=== PATIENT | male | born 1950 | race Caucasian/White ===

== ENCOUNTER → 2016-11-28 | Outpatient (CLI) | payer OTHER ==
[~2016-11-28] MED LIST: IOHEXOL 300 MG/ML 100ML VIAL. IV ONE; LOSA1TAB17 PO
--- NOTE | 2016-11-28 10:31 | KCIC ---
CT OF THE CHEST WITH CONTRAST, 11/28/2016: History: Follow up abnormal CT study Multidetector CT imaging was performed following an IV bolus injection of iodinated contrast material. Comparison is made to a study from 09/13/2015. There is calcific plaquing of the thoracic aorta without evidence of aneurysm. Mild scattered coronary artery calcifications are noted. Multiple small mediastinal lymph nodes are present without evidence of pathologic enlargement. No hilar adenopathy is seen. A small ground-glass opacity previously seen in the right middle lobe has resolved. Currently no pulmonary nodule or significant infiltrate is seen. There is no evidence of pleural fluid. A small low-density left adrenal nodule is probably a adenoma. Hepatic steatosis is again noted. IMPRESSION: 1. Resolution of the small right middle lobe opacity since 09/13/2015 suggesting that it was inflammatory in nature. 2. No acute chest abnormality is detected. Electronically signed by: Kartik Tse MD (Nov 28, 2016 10:29:42)
== END | disposition home or self-care (01) ==
LOC: KCIC CT 09:00
PROVIDERS: ATTEND Physician Assistant Medical
DX: K76.0 Fatty (change of) liver, not elsewhere classified (principal); I25.10 Atherosclerotic heart disease of native coronary artery without angina pectoris; I70.0 Atherosclerosis of aorta
CPT/HCPCS: 71260; Q9967

== ENCOUNTER 2017-06-23 14:13 | Observation (INO) | payer OTHER ==
[~2017-06-23] VITALS: Ht 175.3 cm; Wt 97.6 kg
[~2017-06-23 14:13] MED LIST changes: -IOHEXOL 300 MG/ML 100ML VIAL. IV ONE
--- NOTE | 2017-06-23 15:11 | EKG ---
[facility] [address] [place] [address] Test Date: 2017-06-23 Test Time: 15:00:52 Pat Name: GURPREET JIANG Department: Room: Gender: M Electronic Development Technician: : 1950 Requested By: ASA VIVAR Order Number: [id number] Reading MD: Gary Avila Measurements Intervals [place] Rate: 90 P: 39 RI: 180 QRS: -2 QRSD: 78 T: 81 QT: 346 QTc: 427 Interpretive Statements SINUS RHYTHM Electronically Signed On 06-25-2017 11:15:50 CDT by Gary Avila
[2017-06-23] MEDS ORDERED: ASPIRIN CHEWABLE 81 MG TABLET. PO ONE (15:45)
--- NOTE | 2017-06-23 16:32 | RAD ---
MRI Brain without contrast History: Left-sided numbness, dizziness Technique: Multiplanar, multisequential noncontrast MR imaging was performed of the brain. Contrast: None Comparison: None Findings: There is some motion degradation.There are a few small foci of restricted diffusion of the right occipital lobe, also focus near the right occipital forceps near the margin of splenium of the corpus callosum. There is some corresponding minimal T2 and FLAIR hyperintense signal. There are several other scattered tiny foci of T2 and FLAIR hyperintense abnormality of the supratentorial white matter bilaterally. The ventricles, sulci, and cisterns are within normal limits in size and configuration. There is no significant midline shift, intra-axial mass effect, or focal abnormal extra-axial fluid collection. There is no convincing hemosiderin deposition of the brain parenchyma. There is preservation of the major intracranial flow-voids at the skull base. The mastoid air cells are aerated. The cerebellar tonsils are normal in location. There is no significant abnormality of the pineal gland or pituitary gland. There is minimal inferior maxillary sinus mucosal thickening bilaterally, also minimal sphenoid sinus and patchy ethmoid air cell mucosal thickening. Frontal sinus is not pneumatized. There is nonspecific heterogeneous low signal of the marrow of the nonexpanded clivus. Impression: 1. There are a few small foci of acute or early subacute infarcts of the right occipital lobe, also focus along the right occipital forceps near the margin of splenium of the corpus callosum. 2. Other scattered tiny foci of T2 and FLAIR hyperintense signal of the supratentorial white matter bilaterally are nonspecific although may be due to to chronic microvascular ischemic disease. FOR INTERNAL CODING PURPOSES Critical result: Findings discussed with Dr. Owens at 06/23/2017 4:26 PM. RESULT CODE: (C) Electronically signed by: Tomasz Law MD (06/23/2017 4:28 PM) [id number]
[2017-06-23 17:19] LABS: BASO # 0.1 x10^3/uL (0.0-0.2); BASO % 1 % (0-3); EOS % 0 % (0-3); HEMATOCRIT 43.5 % (39.0-53.0); HEMOGLOBIN 15.1 g/dL (13.0-17.5); LYMPH # 2.4 x10^3/uL (1.0-4.8); LYMPH % 23 % (24-48); MEAN CORPUSCULAR HEMOGLOBIN 33 pg (25-35); MEAN CORPUSCULAR HGB CONC 35 g/dL (31-37); MEAN CORPUSCULAR VOLUME 94 fL (79-100); MONO % 8 % (0-9); NEUT % 67 % (31-73); PLATELET COUNT 269 x10^3/uL (140-400); RED BLOOD COUNT 4.64 x10^6/uL (4.30-5.70); RED CELL DISTRIBUTION WIDTH 12.9 % (11.5-14.5); WHITE BLOOD COUNT 10.5 x10^3/uL (4.0-11.0)
[2017-06-23 17:22] LABS: BILIRUBIN,URINE NEGATIVE (NEG); GLUCOSE,URINE NEGATIVE (NEG); NITRITE,URINE NEGATIVE (NEG); PROTEIN,URINE NEGATIVE (NEG-TRACE); UROBILINOGEN,URINE 0.2 mg/dL (0.2 mg/dL)
[2017-06-23 17:31] LABS: RBC,URINE OCC /HPF (0-2); WBC,URINE 0 /HPF (0-4)
[2017-06-23 17:32] LABS: BACTERIA,URINE 0 /HPF (0-FEW); CALCIUM 9.8 mg/dL (8.5-10.1); CREATININE 0.8 mg/dL (0.7-1.3); GFR 97.3; POTASSIUM 3.9 mmol/L (3.5-5.1)
[2017-06-23 17:38] LABS: ALBUMIN/GLOBULIN RATIO 1.1 (1.0-1.7); TOTAL BILIRUBIN 0.4 mg/dL (0.2-1.0); TOTAL PROTEIN 7.6 g/dL (6.4-8.2)
--- NOTE | 2017-06-23 17:43 | PHYS DOC ---
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 Symptoms were acute onset. Left upper and left lower extremity weakness and left sided visual field defects have since resolved. Patient states dizziness return today. Patient has not been evaluated for any of these symptoms. Dizziness is most pronounced with standing and walking but does not go away at rest. Patient denies currently denies ataxia but, initially reported difficulty walking secondary to left lower extremity weakness. He denies chest pain, palpitations, shortness of breath, neck pain, neck stiffness, or any other acute symptoms or complaints. Patient does smoke and drinks alcohol on a routine basis. Does not take aspirin or any anticoagulation therapy. Patient's PCP is Dr. Jarrod Pulido. Review of Systems Review of Systems Review symptoms as per history of present illness. All other review symptoms are negative. Current Medications Current Medications Current Medications Medications (Trade) Dose Ordered Sig/Lisandra Start Time Stop Time Status Last Admin Dose Admin Aspirin (Children'S Aspirin) 162 mg 1X ONCE 06/23/17 15:45 06/23/17 15:46 DC 06/23/17 15:25 162 MG Allergies Allergies Allergies Coded Allergies Type Severity Reaction Last Updated Verified No Known Drug Allergies 11/28/16 No Physical Exam Physical Exam Constitutional: Well developed, well nourished, no acute distress, non-toxic appearance. [] HENT: Normocephalic, atraumatic, bilateral external ears normal, oropharynx moist, no oral exudates, nose normal. [] Eyes: PERRL, left pupil, nonreactive, proximal 4 mm, EOMI, conjunctiva normal, no discharge. [] Neck: Normal range of motion, no tenderness, supple, no stridor. [] Cardiovascular:Heart rate regular rhythm, no murmur [] Lungs & Thorax: Bilateral breath sounds clear to auscultation [] Abdomen: Bowel sounds normal, soft, no tenderness, no masses, no pulsatile masses. [] Skin: Warm, dry, no erythema, no rash. [] Back: No tenderness, no CVA tenderness. [] Extremities: No tenderness, no cyanosis, no clubbing, ROM intact, no edema. [] Neurologic: Alert and oriented X 3, cranial nerves II through XII grossly intact , no focal extremity weakness or loss of sensation, normal finger to nose, walks with steady slow gait. Reflexes 1+ symmetric throughout upper and lower extremities.. [] Psychologic: Affect normal, judgement normal, mood normal. [] Current Patient Data Vital Signs Vital Signs Date Time Temp Pulse Resp B/P (MAP) Pulse Ox O2 Delivery O2 Flow Rate FiO2 06/23/17 16:53 87 18 194/94 (127) 97 Room Air 06/23/17 15:00 98.0 98.0 Lab Values Laboratory Tests Test 06/23/17 16:55 White Blood Count 10.5 x10^3/uL (4.0-11.0) Red Blood Count 4.64 x10^6/uL (4.30-5.70) Hemoglobin 15.1 g/dL (13.0-17.5) Hematocrit 43.5 % (39.0-53.0) Mean Corpuscular Volume 94 fL (79-100) Mean Corpuscular Hemoglobin 33 pg (25-35) Mean Corpuscular Hemoglobin Concent 35 g/dL (31-37) Red Cell Distribution Width 12.9 % (11.5-14.5) Platelet Count 269 x10^3/uL (140-400) Neutrophils (%) (Auto) 67 % (31-73) Lymphocytes (%) (Auto) 23 % (24-48) L Monocytes (%) (Auto) 8 % (0-9) Eosinophils (%) (Auto) 0 % (0-3) Basophils (%) (Auto) 1 % (0-3) Neutrophils # (Auto) 7.1 x10^3uL (1.8-7.7) Lymphocytes # (Auto) 2.4 x10^3/uL (1.0-4.8) Monocytes # (Auto) 0.9 x10^3/uL (0.0-1.1) Eosinophils # (Auto) 0.0 x10^3/uL (0.0-0.7) Basophils # (Auto) 0.1 x10^3/uL (0.0-0.2) Urine Collection Type Unknown Urine Color Yellow Urine Clarity Hazy Urine pH 7.0 Urine Specific Counce 1.020 Urine Protein Negative mg/dL (NEG-TRACE) Urine Glucose (UA) Negative mg/dL (NEG) Urine Ketones (Stick) Negative mg/dL (NEG) Urine Blood Negative (NEG) Urine Nitrite Negative (NEG) Urine Bilirubin Negative (NEG) Urine Urobilinogen Dipstick 0.2 mg/dL (0.2 mg/dL) Urine Leukocyte Esterase Trace (NEG) Urine RBC Occ /HPF (0-2) Urine WBC 0 /HPF (0-4) Urine Bacteria 0 /HPF (0-FEW) Urine Hyaline Casts Occasional /HPF Urine Mucus Marked /LPF Sodium Level 132 mmol/L (136-145) L Potassium Level 3.9 mmol/L (3.5-5.1) Chloride Level 96 mmol/L (98-107) L Carbon Dioxide Level 24 mmol/L (21-32) Anion Gap 12 (6-14) Blood Urea Nitrogen 14 mg/dL (8-26) Creatinine 0.8 mg/dL (0.7-1.3) Estimated GFR (Cockcroft-Gault) 97.3 BUN/Creatinine Ratio 18 (6-20) Glucose Level 107 mg/dL (70-99) H Calcium Level 9.8 mg/dL (8.5-10.1) Total Bilirubin Pending Aspartate Amino Transferase (AST) Pending Alanine Aminotransferase (ALT) Pending Alkaline Phosphatase Pending Total Protein Pending Albumin Pending Albumin/Globulin Ratio Pending Laboratory Tests 06/23/17 16:55 Laboratory Tests 06/23/17 16:55 EKG EKG [] EKG: Normal sinus rhythm, rate 90, no acute ST-T wave changes, QTC 427. EKG interpreted by this physician. Radiology/Procedures Radiology/Procedures [MRI brain: Few small foci of acute or early subacute infarcts of the right subdural, also focus along the right occipital margin of splenium and corpus callosum, evidence of supratentorial microvascular disease per radiology report] Course & Med Decision Making Course & Med Decision Making Pertinent Labs and Imaging studies reviewed. (See chart for details) [Patient with evidence of acute and subacute CVA on MRI of brain. NIH stroke score is 0 although, patient reports subjective dizziness. Aspirin given. Imaging lab and EKG reviewed with patient's PCP in detail. Recommendations for her hospital admission and neurology consult. Patient without progression of neurologic symptoms or deficits while in the ED.] Dragon Disclaimer Dragon Disclaimer This electronic medical record was generated, in whole or in part, using a voice recognition dictation system. Departure Departure Disposition: 09 ADMITTED INPATIENT Admitting Physician: Jarrod Pulido Condition: IMPROVED Referrals: JARROD PULIDO MD (PCP) ASA VIVAR DO Jun 23, 2017 17:43
[2017-06-23] MEDS ORDERED: cloNIDine HCL 0.1 MG TABLET PO ONE (18:00)
[2017-06-23 19:00] VITALS: BP 143/73
[2017-06-23 23:00] VITALS: BP 111/61
[2017-06-24 03:00] VITALS: BP 121/74
[2017-06-24 04:44] LABS: BASO % 1 % (0-3); EOS % 2 % (0-3); HEMATOCRIT 41.1 % (39.0-53.0); HEMOGLOBIN 14.2 g/dL (13.0-17.5); LYMPH # 3.2 x10^3/uL (1.0-4.8); LYMPH % 34 % (24-48); MEAN CORPUSCULAR HEMOGLOBIN 33 pg (25-35); MEAN CORPUSCULAR HGB CONC 35 g/dL (31-37); MEAN CORPUSCULAR VOLUME 95 fL (79-100); MONO % 11 % (0-9); NEUT % 52 % (31-73); PLATELET COUNT 250 x10^3/uL (140-400); RED BLOOD COUNT 4.34 x10^6/uL (4.30-5.70); RED CELL DISTRIBUTION WIDTH 13.1 % (11.5-14.5); WHITE BLOOD COUNT 9.6 x10^3/uL (4.0-11.0)
[2017-06-24 05:10] LABS: CALCIUM 8.9 mg/dL (8.5-10.1); CREATININE 0.8 mg/dL (0.7-1.3); GFR 97.3; POTASSIUM 4.1 mmol/L (3.5-5.1)
[2017-06-24 07:28] VITALS: BP 145/76
--- NOTE | 2017-06-24 08:23 | PDOC ---
Provider Note Provider Note [id number] CYNDIE HERNANDEZ MD Jun 24, 2017 08:23
--- NOTE | 2017-06-24 08:57 | HP ---
ADMIT DATE: 06/24/2017 CHIEF COMPLAINT: Visual change and left-sided weakness. HISTORY OF PRESENT ILLNESS: A 66-year-old white male who is known to be a heavy drinker and smoker and has a history of hypertension, came to the ER with 1 week of episodic symptoms of some weakness in his left leg more than left arm and some visual field changes that appear to be present on both eyes. Exam is unremarkable. MRI showed evidence of spotty infarcts in the right occipital lobe and no other lesions were seen. Laboratory studies were unremarkable. He does not have any new symptoms and was started on aspirin. PAST HISTORY: MEDICATIONS: Losartan HCT is his only medication. ALLERGIES: He has no allergies. PAST MEDICAL HISTORY: He has had multiple skin cancers resected. He has had no other significant surgeries or any previous CVA. SOCIAL HISTORY: Moderately heavy drinker and smokes about half pack a day, single, not currently employed. FAMILY HISTORY: Unremarkable. REVIEW OF SYSTEMS: No other specific complaints at this time. OBJECTIVE: ENT: All within normal limits. HEENT: Pupils round and reactive, pharynx clear. NECK: No carotid bruits, nodes, masses or thyroid enlargement. LUNGS: Clear. CARDIOVASCULAR: Regular rate. No irregular beat, murmur or tachycardia. ABDOMEN: Soft, benign and nontender. EXTREMITIES: Good pedal and radial pulses. Healed skin cancers in the left upper arm. No new lesions are seen except on the left cheek, which is probably a recurrent basal cell cancer. NEUROLOGIC: Moves all extremities, very subtle left-sided visual haywood notable. EOMs are full. Cranial nerves, motor, sensory and reflexes appear to be intact. Gait was not tested. Mental status is normal. ASSESSMENT: Occipital lobe infarct on the right side with subtle left-sided visual changes. This does not necessarily explain the left leg weakness that he has experienced recently. Risk factors include heavy tobacco or alcohol use. PLAN: Daily aspirin, carotid studies, Neurologic consultation. Start a statin pending results of lipid profile. CYNDIE HERNANDEZ MD DR: KHOA/edmond JOB#: [id number] / [id number]
[2017-06-24] MEDS ORDERED: LOSARTAN POTASSIUM 50 MG TABLET. PO SCH (09:00)
[2017-06-24] MEDS ORDERED: hydroCHLOROthiazide 25 MG TABLET PO SCH (09:00)
[2017-06-24] MEDS ORDERED: ASPIRIN CHEWABLE 81 MG TABLET. PO SCH (09:00)
[2017-06-24 09:08] LABS: CHOLESTEROL/HDL RATIO 3.9
[2017-06-24 10:56] VITALS: BP 143/76
--- NOTE | 2017-06-24 11:33 | RAD ---
Exam performed: Carotid Doppler. Clinical indication: Left facial numbness Date of Service: 06/24/17. Comparison :None available. Technique: Real-time grayscale and Doppler evaluation of the carotid system was performed and images are obtained. Color flow and spectral analysis was observed. Findings: There is diffuse intimal thickening and mild to moderate plaquing within both carotid bulbs extending into the internal carotid artery bilaterally. Doppler interrogation reveals normal waveforms and velocities as follows . Peak systolic velocity within the right common carotid artery measures 98.0 cm/sec whereas on the left measures 163.0 cm/sec . The peak systolic velocity within the right ICA measures 112 cm/sec whereas on the left measures 106 cm/sec. The ICA to CCA ratio on the right measures 1.21 whereas on the left measures 0.67. There is antegrade flow in both vertebral arteries. Impression: 1.Mild to moderate plaquing involving both carotid systems without any flow-limiting stenosis. Note: Stenosis calculations for CT, MR and conventional angiography are based upon determination of the distal ICA diameter in accordance with the NASCET methodology. Stenosis calculations for doppler studies are derived from validated velocity criteria which are known to correlate with NASCET methodology of determining stenosis.
[2017-06-24 14:47] VITALS: BP 144/66
--- NOTE | 2017-06-24 15:23 | CARD ---
APPROVED REPORT EXAM: Two-dimensional and M-mode echocardiogram with Doppler and color Doppler. Other Information Quality : GoodHR: 74bpm Rhythm : NSR INDICATION CVA/TIA Echo Enhancing Agent Indication: Rule Out Septal Defect Agent/Amount Used: Agitated Saline 8mL 2D DIMENSIONS RVDd2.9 (2.9-3.5cm)Left Atrium(2D)3.8 (1.6-4.0cm) IVSd0.8 (0.7-1.1cm)Aortic Root(2D)2.8 (2.0-3.7cm) LVDd5.1 (3.9-5.9cm)LVOT Diameter2.4 (1.8-2.4cm) PWd0.9 (0.7-1.1cm)LVDs3.3 (2.5-4.0cm) FS (%) 34.4 %SV77.5 ml LVEF(%)63.2 (>50%) Aortic Valve AoV Peak Kirt.132.0cm/sAoV VTI25.4cm AO Peak GR.7.0mmHgLVOT Peak Kirt.120.0cm/s AO Mean GR.4mmHgAVA (VMAX)4.00cm2 Mitral Valve MV E Mgbiaquf83.8cm/sMV E Peak Gr.4mmHg MV DECEL [id number] A Davikrxi49.6cm/s MV E Mean Gr.1mmHgE/A Ratio0.8 MV A [id number] Pulmonary Valve PV Peak Twyvtrxi424.2cm/s Tricuspid Valve TR P. Cgyawqar708dk/sTR Peak Gr.24mmHg Pulmonary Vein S1 Rbehkrqo32.1cm/sD2 Qsixvfdy62.9cm/s PVa [id number] LEFT VENTRICLE The left ventricle is normal size. There is normal left ventricular wall thickness. The left ventricu lar systolic function is normal. The Ejection Fraction is 60-65%. There is normal LV segmental wall m otion. Transmitral Doppler flow pattern is Grade I-abnormal relaxation pattern. No left ventricle thr ombus noted on this study. There is no ventricular septal defect visualized. RIGHT VENTRICLE The right ventricle is normal size. There is normal right ventricular wall thickness. The right ventr icular systolic function is normal. ATRIA The left atrium size is normal. The right atrium size is normal. The interatrial septum is intact wit h no evidence for an atrial septal defect or patent foramen ovale as noted on 2-D or Doppler imaging. Injection of agitated saline bubbles documented no interatrial shunt. AORTIC VALVE The aortic valve is mildly sclerotic. The aortic valve is trileaflet. Doppler and Color Flow revealed no significant aortic regurgitation. There is no significant aortic valvular stenosis. MITRAL VALVE The mitral valve leaflets are mildly thickened. There is no evidence of mitral valve prolapse. There is no mitral valve stenosis. Doppler and Color Flow revealed no mitral valve regurgitation noted. TRICUSPID VALVE Doppler and Color Flow revealed trace tricuspid regurgitation. The pulmonary artery systolic pressure is estimated at 27 mmHg. There is no pulmonary hypertension. PULMONIC VALVE The pulmonary valve is not well visualized but appears to open adequately. Doppler and Color Flow rev ealed no pulmonic valvular regurgitation. There is no pulmonic valvular stenosis by spectral Doppler. GREAT VESSELS The aortic root is normal in size. The ascending aorta is normal in size. The pulmonary artery is nor mal. The IVC is normal in size and collapses >50% with inspiration. PERICARDIAL EFFUSION There is no evidence of significant pericardial effusion. Critical Notification Critical Value: No <Conclusion> The left ventricular systolic function is normal. The Ejection Fraction is 60-65%. There is normal LV segmental wall motion. Transmitral Doppler flow pattern is Grade I-abnormal relaxation pattern. Trace tricuspid regurgitation. The pulmonary artery systolic pressure is estimated at 27 mmHg. There is no evidence of significant pericardial effusion. Injection of agitated saline bubbles documented no interatrial shunt.
--- NOTE | 2017-06-24 16:38 | PDOC2 ---
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 Left eye visual disturbances x 1 week. Intermittent dizziness and left side weakness x 1 week. HTN Skin cancer, multiple. Smoking Drinking. RECOMMENDATIONS/PLAN: ASA 325 mg daily. Lipitor HS. Lab: see orders. Patient education for smoking and drinking abstinence. Carotid A US + Doppler: No high grade stenosis. Echo: Unremarkable. HISTORY OF THE PRESENT ILLNESS: 66-y-old male patient with Hx of HTN, smoking and drinking problems developed symptoms of left eye visual disturbances as seeing spots for about 1 week. He also has symptoms of left side lip numbness, intermittent left UE and LE weakness for 1 week. He came to the ER of [facility] on 06/23/17 and was admitted for further evaluation and stroke was revealed. PAST MEDICAL HISTORY: He has had multiple skin cancers resected. He has had no other significant surgeries or any previous CVA. PAST SURGICAL HISTORY: Surgeries for skin cancer. SOCIAL HISTORY: He smokes 1 pack a day for more than 30 years. He drinks 6 beers a day for more than 30 years. Denies illicit drug use. FAMILY HISTORY: Skin cancer. Breast cancer. ALLERGY: NKDA MEDICATIONS: Refer to MAR REVIEW OF SYSTEMS: Constitutional: No malnutrition, weight loss, cachexia. Head: No recent traumatic brain or head injury. Skin: No edema, or rash. Ear: No infection. Eyes: No vision loss or color blindness. Nose: No bleeding or purulent discharges. Hearing: No hearing decrease. Neck: No injury. Cardiac: HTN. Pulmonary: No pneumonia. GI: No GI ulcer, GI bleeding. Urinary/genital: No dysuria, incontinence, urinary retention. Endocrinologic: No cousin face, craniofacial dysmorphism, polydactyly, goiter. Skeletomuscular: No muscular atrophy, deformity. Neurological: see HP. Psychiatric: Denies drug use/abuse. Otherwise, not [id number] review of systems. PHYSICAL EXAMINATION: General appearance is in subacute distress. HEENT: Normocephalic and nontraumatic. Eyes, nose, ears, and throat are unremarkable. Neck is supple. No lymphadenopathy. No bruits are heard over the carotid artery. No crepitus. Cardiovascular: S1, S2, regular rate and rhythm. Pulmonary: Clear to auscultation bilaterally. Abdomen: Bowel sounds are positive. Abdomen is soft, nontender, and nondistended. Extremities: No rash, lesions, or edema. No restriction of range of motion NEUROLOGICAL EXAMINATION: Alert Oriented to time, place and person. PERRL. EOMI. CN: no focal findings. Muscle tone: within normal. Muscle strength: 5 DTR: 2 Plantar reflex: Flexor/Neutral response bilaterally Gait: At baseline normal. Sensory exam: no abnormal findings. No cerebellar signs elicited. F-T-N test accurate. Current Medications Current Medications Current Medications Aspirin (Children'S Aspirin) 162 mg 1X ONCE PO Last administered on 06/23/17 15:25; Start 06/23/17 at 15:45; Stop 06/23/17 at 15:46; Status DC Clonidine HCl (Catapres) 0.1 mg 1X ONCE PO Last administered on 06/23/17 21: 31; Start 06/23/17 at 18:00; Stop 06/23/17 at 18:01; Status DC Losartan Potassium (Cozaar) 100 mg DAILY PO Last administered on 06/24/17 08: 45; Start 06/24/17 at 09:00 Aspirin (Children'S Aspirin) 81 mg DAILYWBKFT PO Last administered on 08:45; Start 06/24/17 at 09:00 Hydrochlorothiazide (Hydrodiuril) 25 mg DAILY PO Last administered on 08:45; Start 06/24/17 at 09:00 Atorvastatin Calcium (Lipitor) 20 mg QHS PO ; Start 06/24/17 at 21:00 Active Scripts Active Reported Losartan-Hctz 100-25 Mg Tab (Losartan/Hydrochlorothiazide) 1 Each Tablet 1 Tab PO DAILY Allergies Allergies: Coded Allergies: No Known Drug Allergies (Unverified , 11/28/16) Vitals VITALS Vital Signs Date Time Temp Pulse Resp B/P (MAP) Pulse Ox O2 Delivery O2 Flow Rate FiO2 06/24/17 14:47 98.2 69 18 144/66 (92) 98 Room Air 98.2 Labs Labs Laboratory Tests Test 06/23/17 16:55 06/24/17 04:20 White Blood Count 10.5 x10^3/uL (4.0-11.0) 9.6 x10^3/uL (4.0-11.0) Red Blood Count 4.64 x10^6/uL (4.30-5.70) 4.34 x10^6/uL (4.30-5.70) Hemoglobin 15.1 g/dL (13.0-17.5) 14.2 g/dL (13.0-17.5) Hematocrit 43.5 % (39.0-53.0) 41.1 % (39.0-53.0) Mean Corpuscular Volume 94 fL (79-100) 95 fL (79-100) Mean Corpuscular Hemoglobin 33 pg (25-35) 33 pg (25-35) Mean Corpuscular Hemoglobin Concent 35 g/dL (31-37) 35 g/dL (31-37) Red Cell Distribution Width 12.9 % (11.5-14.5) 13.1 % (11.5-14.5) Platelet Count 269 x10^3/uL (140-400) 250 x10^3/uL (140-400) Neutrophils (%) (Auto) 67 % (31-73) 52 % (31-73) Lymphocytes (%) (Auto) 23 % (24-48) 34 % (24-48) Monocytes (%) (Auto) 8 % (0-9) 11 % (0-9) Eosinophils (%) (Auto) 0 % (0-3) 2 % (0-3) Basophils (%) (Auto) 1 % (0-3) 1 % (0-3) Neutrophils # (Auto) 7.1 x10^3uL (1.8-7.7) 5.0 x10^3uL (1.8-7.7) Lymphocytes # (Auto) 2.4 x10^3/uL (1.0-4.8) 3.2 x10^3/uL (1.0-4.8) Monocytes # (Auto) 0.9 x10^3/uL (0.0-1.1) 1.1 x10^3/uL (0.0-1.1) Eosinophils # (Auto) 0.0 x10^3/uL (0.0-0.7) 0.2 x10^3/uL (0.0-0.7) Basophils # (Auto) 0.1 x10^3/uL (0.0-0.2) 0.0 x10^3/uL (0.0-0.2) Urine Collection Type Unknown Urine Color Yellow Urine Clarity Hazy Urine pH 7.0 Urine Specific [place] 1.020 Urine Protein Negative mg/dL (NEG-TRACE) Urine Glucose (UA) Negative mg/dL (NEG) Urine Ketones (Stick) Negative mg/dL (NEG) Urine Blood Negative (NEG) Urine Nitrite Negative (NEG) Urine Bilirubin Negative (NEG) Urine Urobilinogen Dipstick 0.2 mg/dL (0.2 mg/dL) Urine Leukocyte Esterase Trace (NEG) Urine RBC Occ /HPF (0-2) Urine WBC 0 /HPF (0-4) Urine Bacteria 0 /HPF (0-FEW) Urine Hyaline Casts Occasional /HPF Urine Mucus Marked /LPF Sodium Level 132 mmol/L (136-145) 133 mmol/L (136-145) Potassium Level 3.9 mmol/L (3.5-5.1) 4.1 mmol/L (3.5-5.1) Chloride Level 96 mmol/L (98-107) 97 mmol/L (98-107) Carbon Dioxide Level 24 mmol/L (21-32) 27 mmol/L (21-32) Anion Gap 12 (6-14) 9 (6-14) Blood Urea Nitrogen 14 mg/dL (8-26) 13 mg/dL (8-26) Creatinine 0.8 mg/dL (0.7-1.3) 0.8 mg/dL (0.7-1.3) Estimated GFR (Cockcroft-Gault) 97.3 97.3 BUN/Creatinine Ratio 18 (6-20) Glucose Level 107 mg/dL (70-99) 103 mg/dL (70-99) Calcium Level 9.8 mg/dL (8.5-10.1) 8.9 mg/dL (8.5-10.1) Total Bilirubin 0.4 mg/dL (0.2-1.0) Aspartate Amino Transf (AST/SGOT) 18 U/L (15-37) Alanine Aminotransferase (ALT/SGPT) 28 U/L (16-63) Alkaline Phosphatase 65 U/L (46-116) Troponin I Quantitative < 0.017 ng/mL (0.000-0.055) Total Protein 7.6 g/dL (6.4-8.2) Albumin 4.0 g/dL (3.4-5.0) Albumin/Globulin Ratio 1.1 (1.0-1.7) Triglycerides Level 79 mg/dL (0-150) Cholesterol Level 142 mg/dL (0-200) LDL Cholesterol, Calculated 90 mg/dL (0-100) VLDL Cholesterol, Calculated 16 mg/dL (0-40) Non-HDL Cholesterol Calculated 106 mg/dL (0-129) HDL Cholesterol 36 mg/dL (40-60) Cholesterol/HDL Ratio 3.9 Laboratory Tests Test 06/23/17 16:55 06/24/17 04:20 White Blood Count 10.5 x10^3/uL (4.0-11.0) 9.6 x10^3/uL (4.0-11.0) Red Blood Count 4.64 x10^6/uL (4.30-5.70) 4.34 x10^6/uL (4.30-5.70) Hemoglobin 15.1 g/dL (13.0-17.5) 14.2 g/dL (13.0-17.5) Hematocrit 43.5 % (39.0-53.0) 41.1 % (39.0-53.0) Mean Corpuscular Volume 94 fL (79-100) 95 fL (79-100) Mean Corpuscular Hemoglobin 33 pg (25-35) 33 pg (25-35) Mean Corpuscular Hemoglobin Concent 35 g/dL (31-37) 35 g/dL (31-37) Red Cell Distribution Width 12.9 % (11.5-14.5) 13.1 % (11.5-14.5) Platelet Count 269 x10^3/uL (140-400) 250 x10^3/uL (140-400) Neutrophils (%) (Auto) 67 % (31-73) 52 % (31-73) Lymphocytes (%) (Auto) 23 % (24-48) 34 % (24-48) Monocytes (%) (Auto) 8 % (0-9) 11 % (0-9) Eosinophils (%) (Auto) 0 % (0-3) 2 % (0-3) Basophils (%) (Auto) 1 % (0-3) 1 % (0-3) Neutrophils # (Auto) 7.1 x10^3uL (1.8-7.7) 5.0 x10^3uL (1.8-7.7) Lymphocytes # (Auto) 2.4 x10^3/uL (1.0-4.8) 3.2 x10^3/uL (1.0-4.8) Monocytes # (Auto) 0.9 x10^3/uL (0.0-1.1) 1.1 x10^3/uL (0.0-1.1) Eosinophils # (Auto) 0.0 x10^3/uL (0.0-0.7) 0.2 x10^3/uL (0.0-0.7) Basophils # (Auto) 0.1 x10^3/uL (0.0-0.2) 0.0 x10^3/uL (0.0-0.2) Urine Collection Type Unknown Urine Color Yellow Urine Clarity Hazy Urine pH 7.0 Urine Specific [place] 1.020 Urine Protein Negative mg/dL (NEG-TRACE) Urine Glucose (UA) Negative mg/dL (NEG) Urine Ketones (Stick) Negative mg/dL (NEG) Urine Blood Negative (NEG) Urine Nitrite Negative (NEG) Urine Bilirubin Negative (NEG) Urine Urobilinogen Dipstick 0.2 mg/dL (0.2 mg/dL) Urine Leukocyte Esterase Trace (NEG) Urine RBC Occ /HPF (0-2) Urine WBC 0 /HPF (0-4) Urine Bacteria 0 /HPF (0-FEW) Urine Hyaline Casts Occasional /HPF Urine Mucus Marked /LPF Sodium Level 132 mmol/L (136-145) 133 mmol/L (136-145) Potassium Level 3.9 mmol/L (3.5-5.1) 4.1 mmol/L (3.5-5.1) Chloride Level 96 mmol/L (98-107) 97 mmol/L (98-107) Carbon Dioxide Level 24 mmol/L (21-32) 27 mmol/L (21-32) Anion Gap 12 (6-14) 9 (6-14) Blood Urea Nitrogen 14 mg/dL (8-26) 13 mg/dL (8-26) Creatinine 0.8 mg/dL (0.7-1.3) 0.8 mg/dL (0.7-1.3) Estimated GFR (Cockcroft-Gault) 97.3 97.3 BUN/Creatinine Ratio 18 (6-20) Glucose Level 107 mg/dL (70-99) 103 mg/dL (70-99) Calcium Level 9.8 mg/dL (8.5-10.1) 8.9 mg/dL (8.5-10.1) Total Bilirubin 0.4 mg/dL (0.2-1.0) Aspartate Amino Transf (AST/SGOT) 18 U/L (15-37) Alanine Aminotransferase (ALT/SGPT) 28 U/L (16-63) Alkaline Phosphatase 65 U/L (46-116) Troponin I Quantitative < 0.017 ng/mL (0.000-0.055) Total Protein 7.6 g/dL (6.4-8.2) Albumin 4.0 g/dL (3.4-5.0) Albumin/Globulin Ratio 1.1 (1.0-1.7) Triglycerides Level 79 mg/dL (0-150) Cholesterol Level 142 mg/dL (0-200) LDL Cholesterol, Calculated 90 mg/dL (0-100) VLDL Cholesterol, Calculated 16 mg/dL (0-40) Non-HDL Cholesterol Calculated 106 mg/dL (0-129) HDL Cholesterol 36 mg/dL (40-60) Cholesterol/HDL Ratio 3.9 JOSE SANDERSON MD Jun 24, 2017 16:38
[2017-06-24] MEDS ORDERED: ATORVASTATIN CALCIUM 20 MG TABLET PO SCH (21:00)
--- NOTE | 2017-06-25 10:22 | DS ---
DATE OF DISCHARGE: 06/24/2017 HOSPITAL SUMMARY: A 66-year-old white male who came in with 2 weeks of intermittent visual field symptoms and mild left-sided weakness. MRI showed some spotty infarcts in the right occipital lobe area, no other lesions seen. Carotid Doppler showed no significant stenosis. Echocardiogram with bubble study was normal and all the laboratory studies were normal as well. He was started on aspirin and atorvastatin and after seen in consultation by Dr. Sarah, the patient requested discharge and he was allowed to be discharged and followed as an outpatient. FINAL DIAGNOSES: 1. Cerebrovascular accident, right occipital lobe. 2. Chronic tobacco and alcohol abuse. OPERATIONS: None. PROCEDURES: None. COMPLICATIONS: None. CONSULTATIONS: Dr. Sarah DISPOSITION: Continue aspirin 81 mg daily and will hold on the statin until his lipid profile is available. Complete avoidance of tobacco and alcohol was strongly encouraged as this appears to be his major risk factors for his posterior circulation infarct. He appeared to have minimal left visual field defect at the time of discharge and should be able to drive without difficulty. Office followup in 2 weeks. CYNDIE HERNANDEZ MD DR: KHOA/edmond JOB#: [id number] / [id number]
== END 2017-06-24 18:03 | disposition home or self-care (01) ==
LOC: ER 14:13 → 6 SOUTH 17:38
PROVIDERS: ADMIT Family Medicine; ATTEND Family Medicine
DX: I63.9 Cerebral infarction, unspecified (principal); H53.9 Unspecified visual disturbance; F17.210 Nicotine dependence, cigarettes, uncomplicated; I10 Essential (primary) hypertension; Z80.3 Family history of malignant neoplasm of breast; Z79.82 Long term (current) use of aspirin; Z80.8 Family history of malignant neoplasm of other organs or systems; Z85.828 Personal history of other malignant neoplasm of skin
CPT/HCPCS: 36415; 70551; 80048; 80053; 80061; 81001; 84484; 85025; 87086; 93005; 93880; 99285; C8929; G0378; G0379

== ENCOUNTER → 2019-09-01 | Outpatient (CLI) | payer MEDICARE ==
[~2019-09-01] MED LIST changes: -LOSA1TAB17 PO; +LOSA1TAB22 PO
--- NOTE | 2019-09-01 12:36 | RAD ---
MR of the left proximal tibia fibula HISTORY: Open ulcer at the lateral tibia fibula just below the knee. TECHNIQUE: Surface marker placed at the area of concern. Routine multiplanar T1 and STIR sequences are obtained centered through this aspect of the lower extremity. FINDINGS: Extensive artifact due to metal hardware of the knee and tibia. Mild skin thickening and signal at the area of the ulcer. Some of the soft tissue in this area is not visualized due to the artifact, but where seen, no evidence of an organized fluid collection or drainable abscess. Diffuse soft tissue edema in this area, lateral to the proximal tibia and fibula. There is also intramuscular edema signal within the extensor and flexor muscles. Similarly, the tibia is obscured by the artifact and cannot be evaluated. The visualized fibula appears intact without evidence of bone destruction or acute fracture. Small partially visualized suprapatellar joint effusion of uncertain sterility. IMPRESSION: 1. Exam limited by metal artifact as described above. 2. Soft tissue and muscle edema in the area of the ulcer, around the proximal lateral tibia and fibula, could represent cellulitis/myositis. 3. No evidence of drainable abscess or acute osteomyelitis in the areas which are not obscured by the metal artifact. 4. Small nonspecific suprapatellar joint effusion. Electronically signed by: Surjit Allen MD (09/01/2019 12:33 PM) [id number]
== END | disposition home or self-care (01) ==
LOC: MRI 08:20
PROVIDERS: ATTEND Preventive Medicine Undersea and Hyperbaric Medicine
DX: L97.829 Non-pressure chronic ulcer of other part of left lower leg with unspecified severity (principal); M25.462 Effusion, left knee
CPT/HCPCS: 73718

== ENCOUNTER → 2021-09-24 | Outpatient (CLI) | payer MEDICARE ==
--- NOTE | 2021-09-24 13:22 | KCIC ---
CLINICAL HISTORY: Reason: AAA SCREENING; HX SMOKING X50 YEARS, HTN / Spl. Instructions: / History: COMPARISON: None available. TECHNIQUE: The abdominal aorta was examined from the diaphragm to the proximal common iliac arteries. FINDINGS: There is calcified plaque seen throughout. There is increased velocity in the right common iliac sapna ry. The proximal abdominal aorta measures 2.1 centimeters in AP dimension. The mid abdominal aorta measures 1.7 centimeters in AP dimension. The distal abdominal aorta measures 1.3 cm in AP dimension. The right common iliac artery measures 1.3 cm x 0.85 cm in diameter. The left common iliac artery me asures 1.2 x 1.2 cm in diameter. IMPRESSION: Significant atherosclerotic disease. No abdominal aortic aneurysm. Electronically signed by: Yinka Hernandez III, MD (09/24/2021 1:19 PM) [facility]
== END ==
LOC: KCIC US 07:57
PROVIDERS: ATTEND Family Medicine
DX: I25.10 Atherosclerotic heart disease of native coronary artery without angina pectoris (principal); I10 Essential (primary) hypertension; Z87.891 Personal history of nicotine dependence
CPT/HCPCS: 76770